=== PATIENT | male | born 1960 | race Caucasian/White ===

== ENCOUNTER 2022-06-01 10:57 | Day surgery (SDC) | payer BC ==
[~2022-06-01 10:57] MED LIST: Lactated Ringers 1,000 ML IV SCH; Lidocaine 1%/Sod Bicarbonate in NS 8.4% 1 ML Syringe IDERM PRN; Sodium Chloride 0.9% 10 ML Syringe FLUSH PRN; Sodium Chloride 0.9% 10 ML Syringe FLUSH SCH
[2022-06-01] MEDS ORDERED: Lidocaine 1% 50 ML MDV ONE (11:02)
[2022-06-01] MEDS ORDERED: Bupivacaine 0.5%/EPINEPHrine 1:200,000 50 ML MDV ONE (11:02)
[2022-06-01] MEDS ORDERED: Ondansetron 4 MG/2 ML SDV ONE ×2 (11:38→13:38)
[2022-06-01] MEDS ORDERED: Lidocaine 1% 5 ML VIAL ONE (11:38)
[2022-06-01] MEDS ORDERED: Midazolam 1 MG/ML 2 ML SDV ONE (11:38)
[2022-06-01] MEDS ORDERED: Rocuronium 50 MG/5 ML Vial ONE ×2 (11:38→13:36)
[2022-06-01] MEDS ORDERED: fentaNYL 100 MCG/2 ML SDV ONE (11:38)
[2022-06-01] MEDS ORDERED: Propofol 200 MG/20 ML SDV ONE (11:38)
[2022-06-01] MEDS ORDERED: Succinylcholine 200 MG/10 ML MDV ONE (11:59)
[2022-06-01] MEDS ORDERED: ceFAZolin 2 GM Vial ONE (11:59)
[2022-06-01] MEDS ORDERED: Lactated Ringers 1,000 ML ONE (12:46)
[2022-06-01] MEDS ORDERED: HYDROmorphone 0.5 MG/0.5 ML Syringe IVPUSH PRN (15:13)
[2022-06-01] MEDS ORDERED: fentaNYL 100 MCG/2 ML SDV IVPUSH PRN (15:13)
[2022-06-01 16:57] VITALS: BP 133/86; PULSE 64
== END 2022-06-01 17:10 | disposition home or self-care (01) ==
LOC: JD.SDS 10:57
PROVIDERS: ATTEND Surgery
DX: K40.20 Bilateral inguinal hernia, without obstruction or gangrene, not specified as recurrent (principal); I10 Essential (primary) hypertension; K21.9 Gastro-esophageal reflux disease without esophagitis; E78.00 Pure hypercholesterolemia, unspecified; Z88.0 Allergy status to penicillin; Z88.8 Allergy status to other drugs, medicaments and biological substances; Z95.1 Presence of aortocoronary bypass graft; Z98.890 Other specified postprocedural states; Z79.899 Other long term (current) drug therapy; Z79.82 Long term (current) use of aspirin; Z88.1 Allergy status to other antibiotic agents
CPT/HCPCS: 00840; C1727; C1781; J0330; J0690; J2001; J2250; J2405; J2704; J3010; J3490; J7120